=== PATIENT | male | born 1950 | race Caucasian/White ===

== ENCOUNTER 2021-07-02 19:58 | Emergency (ER) | payer OTHER, MEDICARE, SELFPAY ==
--- NOTE | ~2021-07-02 | XR_ITS ---
EXAMINATION: XR ribs LT 2V w CXR 2V DATE: 07/02/2021 20:32 INDICATION: Left rib pain. Fall. TECHNIQUE: Frontal and lateral views of the chest and 2 views of the left ribs on 3 radiographs were obtained. COMPARISON: None. FINDINGS: CHEST TWO VIEWS: There is no pneumonia, pleural effusion, or pneumothorax. The heart size is normal. LEFT RIBS: There is a fracture of left fifth rib. IMPRESSION: 1. Fracture of left fifth rib. Reviewed, dictated and finalized at location A.
[2021-07-02 20:08] VITALS: BP 163/95; PULSE 68; RESP 16; TEMP 36.8; O2SAT 96
--- NOTE | 2021-07-02 20:22 | ED.FALL ---
HPI - Fall General Chief Complaint: Fall <Kisha Mcknight PA-C - Last Filed: 07/02/21 21:22> Stated Complaint: fall, rib pain <Kisha Mcknight PA-C - Last Filed: 07/02/21 21:22> Time Seen by Provider: 07/02/21 20:15 <MATTI Stewart Last Filed: 07/02/21 21:22> Source: patient <MATTI Stewart Last Filed: 07/02/21 21:22> Mode of arrival: ambulatory <MATTI Stewart Last Filed: 07/02/21 21:22> Limitations: no limitations <MATTI Stewart Last Filed: 07/02/21 21:22> History of Present Illness HPI Narrative: This is a 71 year old male that presents to the ER for left sided rib pain x 1 hour after a ground level fall. Reports he was stepping over a small fence and tripped. Reports landing on his left side. Denies hitting his head or loss of consciousness. Reports since he has had left sided rib pain. Reports the pain is making it hard to breath. Denies vision changes, neck pain, back pain, abdominal pain, vomiting, numbness, or weakness. <MATTI Stewart Last Filed: 07/02/21 21:22> Related Data Allergies/Adverse Reactions: Allergies Allergy/AdvReac Type Severity Reaction Status Date / Time No Known Allergies Allergy Verified 07/02/21 20:47 <MATTI Stewart Last Filed: 07/02/21 21:22> Review of Systems Review of Systems: CONSTITUTIONAL: Denies fever EYES: Denies visual changes CARDIOVASCULAR: Reports chest pain RESPIRATORY: Reports dyspnea. GASTROINTESTINAL: Denies abdominal pain, nausea, vomiting MUSCULOSKELETAL: Denies back pain NEUROLOGIC: Denies numbness, or weakness. <MATTI Stewart Last Filed: 07/02/21 21:22> All systems reviewed & are unremarkable except as noted in HPI and below <MATTI Stewart Last Filed: 07/02/21 21:22> [facility] Past Medical History Medical History: Medical History (Updated 08/07/21 @ 00:00 by Jodi Patel) No active medical problems <Kisha Mcknight PA-C - Last Filed: 07/02/21 21:22> Social History Social History: Social History (Updated 07/02/21 @ 20:27 by Kisha Mcknight PA-C) Substance use: never <Kisha Mcknight PA-C - Last Filed: 07/02/21 21:22> Exam Narrative: GENERAL: Well-appearing, well-nourished, and in no acute distress. HEAD: Normocephalic, atraumatic. EYES: PERRLA and EOMI. ENT: Nares clear, no rhinorrhea or epistaxis. Mucous membranes moist. Oropharynx without tonsillar hypertrophy exudate or other lesions. NECK: Supple. No adenopathy or masses. No midline cervical spine tenderness CHEST: Clear to auscultation. No respiratory distress. No wheezes rales or rhonchi. Tender to palpation of the left anterior lateral chest wall HEART: Regular rate and rhythm. No murmur heard. Normal peripheral pulses. ABDOMEN: Soft, nontender, nondistended, normal active bowel sounds. BACK: No midline thoracic or lumbar spine tenderness EXTREMITIES: Normal range of motion. No edema or obvious deformity. SKIN: Warm, dry, no rash. NEURO: No focal deficits. Alert and oriented x3. Cranial nerves II through XII grossly intact PSYCH: Normal mood and affect <Kisha Mcknight PA-C - Last Filed: 07/02/21 21:22> Course Vital Signs Vital signs: Vital Signs Temperature 36.8 C 07/02/21 20:08 Pulse Rate 68 07/02/21 20:08 Respiratory Rate 16 07/02/21 20:08 Blood Pressure 163/95 H 07/02/21 20:08 Pulse Oximetry 96 07/02/21 20:08 Temperature 36.8 C 07/02/21 20:08 Pulse Rate 72 07/02/21 22:15 Respiratory Rate 18 07/02/21 22:15 Blood Pressure 156/86 H 07/02/21 22:15 Pulse Oximetry 97 07/02/21 22:15 <Kisha Mcknight PA-C - Last Filed: 07/02/21 21:22> Vital Signs Temperature 36.8 C 07/02/21 20:08 Pulse Rate 68 07/02/21 20:08 Respiratory Rate 16 07/02/21 20:08 Blood Pressure 163/95 H 07/02/21 20:08 Pulse Oximetry 96 07/02/21 20:08 Temperature 36.8 C 07/02/21 20:08 Pulse Rate 72 07/02/21
[2021-07-02] MEDS: MORPHINE SULFATE (*CRX) 4 MG/ML INJ IV PUSH (20:48)
[2021-07-02] MEDS: ONDANSETRON INJ 4 MG/2 ML VIAL IV PUSH (20:49)
[2021-07-02 20:58] LABS: Basophils Percent Auto 0.5 % (0.2-1.2); Eosinophils Absolute Auto 0.2 K/mm3 (0-0.3); Eosinophils Percent Auto 3.3 % (0-4.4); Hematocrit 39.7 % (42.0-52.0); Hemoglobin 13.6 g/dL (14.0-18.0); Immature Granulocyte Absolute 0.02 K/mm3 (0.00-0.031); Immature Granulocyte Percent A 0.3 % (0-0.5); Lymphocytes Absolute Auto 1.78 K/mm3 (0.9-3.2); Lymphocytes Percent Auto 29.6 % (18.3-44.2); Mean Corpuscular HGB Conc 34.3 g/dl (32-36); Mean Corpuscular Hemoglobin 34.8 pg (26-34); Mean Corpuscular Volume 101.5 fl (80-100); Mean Platelet Volume 9.8 fl (7.4-10.4); Monocytes Absolute Auto 0.8 K/mm3 (0.1-0.6); Neutrophils Absolute Auto 3.2 K/mm3 (1.3-6.7); Neutrophils Percent Auto 53.3 % (45.5-73.1); Platelet Count Result 147 k/mm3 (150-375); Red Blood Count 3.91 M/mm3 (4.6-6.20); Red Cell Distribution Width 12.5 % (11.5-14.5)
[2021-07-02 21:09] LABS: Alanine Aminotransferase 18 U/L (4-50); Albumin Level 4.2 g/dL (3.5-5.1); Alkaline Phosphatase 77 U/L (38-126); Anion Gap 7 mmol/L (8-16); Aspartate Amino Transferase 29 U/L (17-59); Bilirubin,Total 0.5 mg/dL (0.2-1.3); Blood Urea Nitrogen 28 mg/dL (9-20); Calcium 9.4 mg/dL (8.4-10.2); Carbon Dioxide 26 mmol/L (22-30); Chloride 102 mmol/L (98-107); Estimated CRCL calculation 50 ml/min; Estimated Glomerular Filt Rate 55; Glucose 97 mg/dL (65-110); Lipase 223 U/L (23-300); Potassium 4.1 mmol/L (3.4-5.0); Sodium 135 mmol/L (137-145)
[2021-07-02 21:10] LABS: Partial Thromboplastin Time 27.8 SECONDS (22.3-36.8)
[2021-07-02 22:15] VITALS: BP 156/86; PULSE 72; RESP 18; O2SAT 97
== END 2021-07-02 22:15 | disposition home or self-care (01) ==
PROVIDERS: Physician Assistant; Emergency Provider Emergency Medicine
DX: S22.32XA Fracture of one rib, left side, initial encounter for closed fracture (principal); W18.09XA Striking against other object with subsequent fall, initial encounter
CPT/HCPCS: 36415; 71046; 71100; 80053; 83690; 85025; 85610; 85730; 96374; 96375; 99284; J2270; J2405